=== PATIENT | male | born 1945 | race Caucasian/White ===

== ENCOUNTER 2017-02-01 06:44 | Inpatient (IN) | payer MEDICARE, OTHER ==
[2017-01-30 15:07] LABS: WBC (NOT ORDERED) (RFLEX) 0 (0-5)
[2017-01-30 15:37] LABS: BASOPHILS 0.2 %; BASOPHILS ABSOLUTE 0.02 10/3/uL (0.0-0.16); EOSINOPHILS 0.8 %; EOSINOPHILS ABSOLUTE 0.08 10/3/uL (0.0-0.53); HEMATOCRIT 44.5 % (40.0-51.0); HEMOGLOBIN 15.1 g/dL (13.6-17.8); IMMATURE GRANULOCYTES 0.3 %; IMMATURE GRANULOCYTES ABSOLUTE 0.03 10/3/uL (0.0-0.11); LYMPHOCYTES 22.1 %; LYMPHOCYTES ABSOLUTE 2.29 10/3/uL (0.67-4.30); MEAN CORPUS HGB CONC 33.9 g/dL (32.0-36.0); MEAN CORPUSCULAR VOLUME 91.4 fL (80-100); MONOCYTES 8.6 %; MONOCYTES ABSOLUTE 0.89 10/3/uL (0.21-1.20); NEUTROPHILS ABSOLUTE 7.04 10/3/uL (2.02-8.40); PLATELET COUNT 253 10/3/uL (150-400); RBC DISTRIBUTION WIDTH 13.1 % (12.0-16.0); RED CELL COUNT 4.87 10/6/uL (4.7-6.1); WHITE BLOOD CELLS 10.4 10/3/uL (4.5-10.5)
[2017-01-30 15:38] LABS: MANUAL DIFF NO %
[2017-01-30 15:40] LABS: INTERNATIONAL NORMAL RATI 1.1 UNITS (-); PROTIME (NOT ORD) 14.2 SEC (12.0-14.5)
[2017-01-30 15:49] LABS: ASCORBIC ACID (UR NOT ORDER) 40 (NEG); BILIRUBIN, URINE NEGATIVE (NEG); KETONE, URINE NEGATIVE (NEG); LEUKOCYTE ESTERASE(NOT OR NEG (NEG)
[2017-01-30 15:50] LABS: % IRON SAT 19 % (20-50); A/G RATIO 1.1 (0.7-1.9); ALBUMIN 4.3 G/DL (3.5-5.0); ALKALINE PHOSPHATASE 101 U/L (45-117); BUN (BLOOD UREA NITROGEN) 15 MG/DL (6-23); CALCIUM, SERUM 9.3 MG/DL (8.5-10.4); CHLORIDE, SERUM 102 MMOL/L (96-112); CO2 (CARBON DIOXIDE) 28 MMOL/L (24-34); GFR AFRICAN AMERICAN 78 ML/MIN (>=60); GFR NON AFRICAN AMERICAN 68 ML/MIN (>=60); GLUCOSE, SERUM 98 MG/DL (60-99); IRON BINDING CAPACITY 385 MCG/DL (250-450); IRON, SERUM 75 MCG/DL (35-150); SGOT(AST) 18 U/L (5-40); SGPT(ALT) 29 U/L (5-65); SODIUM, SERUM 136 MMOL/L (135-148); TOTAL BILIRUBIN 0.7 MG/DL (0-1.2); TOTAL PROTEIN 8.3 G/DL (6.0-8.5)
--- NOTE | ~2017-02-01 | OP ---
Record Of Operation [facility] [address] [place]. [address] NAME: KIN DE LEÓN : 47 STATUS : ADM IN PAT#: [id number] AGE: 71 ADM/REG DATE : 02/01/17 MR#: [id number] REPORT SERV DATE: 02/02/17 DICTATED BY: ANUSHA MAURER DATE: 02/01/17 REPORT STATUS : Draft TRANSCRIBED BY: MODL DATE: 02/01/17 DATE OF PROCEDURE: 02/01/2017 PREOPERATIVE DIAGNOSES: 1. Coronary artery disease with dyspnea on exertion. 2. Left main coronary artery disease. 3. Previous percutaneous coronary intervention with stents of the coronary artery. 4. Hypertension. 5. Hyperlipidemia. 6. Crohn disease. 7. Gastroesophageal reflux disease. 8. Restrictive lung disease. POSTOPERATIVE DIAGNOSES: 1. Coronary artery disease with dyspnea on exertion. 2. Left main coronary artery disease. 3. Previous percutaneous coronary intervention with stents of the coronary artery. 4. Hypertension. 5. Hyperlipidemia. 6. Crohn disease. 7. Gastroesophageal reflux disease. 8. Restrictive lung disease. PROCEDURES PERFORMED: 1. Coronary artery bypass grafting x3, left internal mammary artery placed to left anterior descending, reverse saphenous vein graft placed to the first diagonal, reverse saphenous vein graft placed to the second obtuse marginal. 2. Endoscopic vein harvest of the saphenous vein from the right thigh. 3. Transesophageal echocardiography. SURGEON: Anusha Maurer M.D. ASSISTANTS: Norah Veliz, Rosa Bradford, and Claudio Noyola. ANESTHESIA: General with Dr. Lassiter. [employer]: Aamir Acharya M.D. PRIMARY CARE: Godfrey Cheung M.D. INDICATIONS: This is a 71-year-old gentleman who has a known history of coronary artery disease with previous stenting of the circumflex vessel. Over the last several weeks, he has noticed increasing dyspnea with exertion and lightheadedness or dizziness when he bends over at the waist. Denies any anginal-type symptoms. Recent echocardiography demonstrated normal ventricular function with an ejection fraction 55% to 60%. He had a nuclear stress test on 01/13/2017 that showed inferior wall ischemia with dyspnea and graded as an Record Of Operation [facility] [address] [facility] [place]. [address] NAME: KIN DE LEÓN : 47 STATUS : ADM IN PAT#: [id number] AGE: 71 ADM/REG DATE : 02/01/17 MR#: [id number] REPORT SERV DATE: 02/02/17 DICTATED BY: ANUSHA MAURER DATE: 02/01/17 REPORT STATUS : Draft TRANSCRIBED BY: CHAO DATE: 02/01/17 intermediate risk study. Cardiac catheterization demonstrated significant left main stenosis of 75%. His ventricular function was preserved. We were asked to see the patient for possible coronary artery bypass grafting and discussed this operation with the patient and his family, and after discussing the operation, its indications and risks, they wished to proceed. STS predicted risk of mortality of 0.6%, morbidity mortality was 7.5%. This was shared with the family. FINDINGS AT OPERATION: 1. Cross-clamp time of 47 minutes, total pump time 61 minutes. 2. The LAD was 1.75 mm and moderately diseased vessel. A 3 mm CHAHAL was anastomosed to it with good runoff. 3. The first diagonal was 1.75 mm and mildly diseased. A 4 mm RSVG was anastomosed to it with good runoff. 4. The second obtuse marginal was 2 mm and moderately diseased. A 4 mm RSVG was anastomosed to it with good runoff. 5. The vein quality was good and all grafts had good Doppler signal at the end of the case. 6. SOCORRO at the end of the operation demonstrated good ventricular function with no significant mitral insufficiency or aortic stenosis. PATHOLOGIC SPECIMEN: None. DESCRIPTION OF PROCEDURE: The patient was brought to the operating suite where general anesthesia was induced and airway secured with an endotracheal tube. Lines were secured by Anesthesia, and Bowman catheter was placed. The patient's chest, abdomen, groin, and legs were prepped with Hibiclens and ChloraPrep and draped with Ioban sterile sheets. SOCORRO probe was placed by Dr. Lassiter and examination carried out in my attendance as discussed above. The saphenous vein was harvested from the right thigh using endoscopic technique. Briefly, the vein was cut directly down upon through a 2 cm incision placed at the medial aspect of the right knee. Then, using VasoView trocars, the vessel was dissected from the surrounding subcutaneous tissue and fat. The side branches were identified, ligated, divided with cautery. Once adequate length of vein had been dissected, a counter incision made up in the groin and the vein was ligated, divided, and brought through the knee incision. The vein quality was good. The leg was made hemostatic and closed in layers of absorbable suture and skin closed in a subcuticular fashion. Next, a midline sternal incision was made and the sternum opened with a saw. The left hemithorax was elevated and the endothoracic fascia was incised. The side branch of the MDAELIN were clipped and divided. Once the MADELIN was completely dissected, the patient was anticoagulated with heparin and chest tube placed in the left pleural cavity. The MADELIN was clipped and divided distally. There was good flow through the MADELIN and its pedicle was infiltrated with papaverine. Next, the Connor retractor was placed in the pericardium over from innominate vein and diaphragm, where it was T'd and tacked to the side of the chest wall. Cannulation pursestring sutures were placed and cannulation was carried out in a routine manner. A Record Of [address] [place]. [address] NAME: KIN DE LEÓN : 47 STATUS : ADM IN PAT#: [id number] AGE: 71 ADM/REG DATE : 02/01/17 MR#: [id number] REPORT SERV DATE: 02/02/17 DICTATED BY: ANUSHA MAURER DATE: 02/01/17 REPORT STATUS : Draft TRANSCRIBED BY: CHAO DATE: 02/01/17 retrograde cardioplegia cannula was placed in the coronary sinus. When all was in readiness, the patient was placed on cardiopulmonary bypass. The distal targets were marked out on the heart as described in findings. Then, a heart support was placed. The aorta was crossclamped and an initial dose of cold blood cardioplegia solution was given in a combination of antegrade and retrograde fashion, then a retrograde manner following proximal anastomoses. Following the first dose of cardioplegia, the heart was positioned for the obtuse marginal graft. Arteriotomy was made. The vein graft was trimmed and anastomosed to it with 7-0 Prolene. The vein graft was measured to the left side of the ascending aorta where it was divided. We then positioned the heart for the diagonal graft. Another arteriotomy was made and the vein graft was trimmed and anastomosed to this vessel with 7-0 Prolene. This vein graft was measured back likewise to the left side of the ascending aorta where it was divided. Next, the proximal ends of the two vein grafts were anastomosed to 5 mm punch aortotomies with 6-0 Prolene. Another dose of cardioplegia was given and the heart was positioned for the LAD graft. Warming was begun. Arteriotomy was made in the mid LAD. The MADELIN was brought out the left chest through a notch in the pericardium over the pulmonary artery. The MADELIN was opened and anastomosed to the LAD with running suture of 8-0 Prolene. The endothoracic fascia was tacked to epicardium. The patient was placed in Trendelenburg and a final dose of warm blood cardioplegia was given in a retrograde fashion. Ventricular and atrial pacing wires were placed. Following the last dose of cardioplegia and deairing of the aorta, the aortic cross clamp was removed. The distal and proximal anastomoses were inspected and made hemostatic. The heart resumed a sinus rhythm that was slow and was paced atrially at a rate of 80. Ventilation was begun. When the heart demonstrated good contractility, it was allowed to fill and eject. When deairing was completed, the patient was taken out of Trendelenburg and the ascending aortic vent removed and these pursestring sutures tied and reinforced. The patient was weaned from cardiopulmonary bypass with minimal inotropic support. The venous cannula was removed and these pursestring sutures tied. SOCORRO examination demonstrated good ventricular function with no significant valvular pathology. Protamine was administered by Anesthesia and following a period of hemodynamic stability, the aortic cannula was removed and these pursestring sutures tied and reinforced. The patient continued do well and chest was irrigated copiously with saline. Meticulous hemostasis was obtained. Hemasorb was placed along the cut edge of the sternum. Once hemostasis was assured, the pericardium was draped over the anterior surface of the heart and tacked into position. Doppler demonstrated good flow through the grafts following protamine administration. Chest tubes were placed and sternum reapproximated with eight sternal wires. The clavipectoral fascia and linea alba were closed with #1 Stratafix. The subcutaneous tissue was closed with Stratafix and skin closed in a subcuticular fashion. The patient tolerated the procedure well. There were no complications. Sponge and needle Record Of [facility] [address] [facility] [place]. [address] NAME: KIN DE LEÓN : 47 STATUS : ADM IN PAT#: [id number] AGE: 71 ADM/REG DATE : 02/01/17 MR#: [id number] REPORT SERV DATE: 02/02/17 DICTATED BY: ANUSHA MAURER DATE: 02/01/17 REPORT STATUS : Draft TRANSCRIBED BY: MODL DATE: 02/01/17 counts were correct. DISPOSITION: The patient left intubated, sedated, and transported to the intensive care unit in stable condition. BRANDON/CHAO Anusha Maurer M.D. / [id number] CC: Pieter Zhao M.D. Van Stephen Monroe Jr., M.D.
--- NOTE | ~2017-02-01 | DS ---
Discharge Summary [facility] [address] [facility] [place]. [address] NAME: KIN DE LEÓN : 47 STATUS : DIS IN PAT#: [id number] AGE: 71 ADM/REG DATE : 02/01/17 MR#: [id number] REPORT SERV DATE: 02/16/17 DICTATED BY: ANUSHA MAURER DATE: 02/15/17 REPORT STATUS : Draft TRANSCRIBED BY: CHAO DATE: 02/15/17 Data Collection from hospitalization DISCHARGE DIAGNOSES: 1. Coronary artery disease status post coronary artery bypass. 2. Hypertension. 3. Hyperlipidemia. 4. Prostate cancer. 5. Crohn disease. 6. Rheumatoid arthritis. 7. Gastroesophageal reflux disease. 8. History of ankylosing spondylitis. 9. Remote tobacco use. 10.Restrictive lung disease. CONSULTATIONS: Dr. Mejia Stern, Clifton Bettencourt, DEVIN. PROCEDURES PERFORMED: Coronary artery bypass grafting x3 with CHAHAL to the LAD, reverse saphenous vein graft placed to the first diagonal, reverse saphenous vein graft placed to the second obtuse marginal, endoscopic vein harvest of the saphenous vein from the right thigh, transesophageal echocardiography, 02/01/2017. MEDICATIONS: Vitamin C 1000 mg twice a day, aspirin 81 mg twice a day, Lipitor 40 mg as instructed, Coreg 6.25 mg twice a day, Plavix 75 mg daily, Flonase nasal spray one spray nasally daily, Lasix 40 mg daily, [place] 5/325 one tablet every four hours as needed, multivitamins one tablet daily, NitroQuick 0.4 mg sublingually as needed, fish oil 1000 mg daily, Protonix 40 mg daily, Klor-Con 20 mEq as instructed, Azulfidine 1500 mg twice a day. CONDITION AT DISCHARGE: Stable. DISPOSITION: The patient was discharged home on a low-sodium, low-cholesterol, cardiac diet with activities as instructed. He would follow up with John Huizar, 02/14/[address] Mejia Stern, 02/17/2017. He would follow up at cardiac rehab, 03/14/2017. HOSPITAL COURSE: This is a 71-year-old man, who has a known history of coronary artery disease with previous stenting of the circumflex vessel. Over the past several weeks, he had noticed increasing dyspnea with exertion and lightheadedness or dizziness when he would bend over at the waist. He denied any anginal-type symptoms. Recent echocardiography demonstrated normal ventricular function with an ejection fraction of 55% to 60%. He had a nuclear stress test in December 2016 that showed inferior wall ischemia with dyspnea and was graded as an intermediate risk study. A cardiac catheterization demonstrated significant left main stenosis of 75%. His ventricular function was preserved. It was felt the patient would need to undergo coronary artery bypass grafting. He was admitted to the hospital at this time for further evaluation and treatment. Upon admission, he was taken to the operating room, where he underwent the above-mentioned procedure. He tolerated this well and there were no complications. On postop day one, he was up sitting in a chair. His lungs were clear. He had no edema. White blood cell count Discharge Summary [id number] [place]. [address] NAME: KIN DE LEÓN : 47 STATUS : DIS IN [facility]#: [id number] AGE: 71 ADM/REG DATE : 02/01/17 MR#: [id number] REPORT SERV DATE: 02/16/17 DICTATED BY: ANUSHA MAURER DATE: 02/15/17 REPORT STATUS : Draft TRANSCRIBED BY: CHAO DATE: 02/15/17 was 19.5. He was seen by Dr. Mejia Stern. The patient said he was sore and had some left pleuritic pain. He had no shortness of breath or edema. Coreg was started. Amiodarone, statin agent, and DAPT were continued. He was also seen by Clifton Bettencourt. He had been asked to see the patient regarding glucose management. The patient has no history of diabetes. He was on an insulin drip at this time. He was going to be placed on Levemir and NovoLog, and we would discontinue the IV insulin. We encouraged him to mobilize and use incentive spirometry. On postop day two, he said he was feeling okay. He did have some mild nausea. Levemir was given that evening. Lasix was going to be given. Electrolyte protocol was in place. Amiodarone was decreased. He had some abdominal bloating. His incisions looked okay. On 02/04/2017, his abdomen was distended. White count was 14.1. He was tolerating clear liquids over the next couple of days. Discharge planning was performed. He did have a small bowel movement. We encouraged him to use pulmonary toilet. Dulcolax suppository was given. Discharge planning was performed. He was in a normal sinus rhythm. On 02/06/2017, he continued to progress. He was wanting to go home. He did have some cough. His lungs were clear. He had trace to 1+ lower extremity edema. Lasix and potassium were being provided. He was ambulatory. Discharge instructions were given. Due to his improved and stable condition, he was discharged home with the above-stated instructions. Information collected by: Gracia Cadena I submit the above information as my discharge summary. TG/MODL Anusha Maurer M.D. / [id number] CC: Pieter Zhao MICHAEL Allen E Atchley, M.D.
[~2017-02-01 06:44] MED LIST: ASAB PO; COREG6 PO; CRESTOR20 MG PO; FISH-EPA1000 MG PO; FLONASE NAS; LIPITOR10 PO; MULTIPLE VIT PO; NITROSTAT0.4 MG SL; NORV5 PO; PENTASA500 MG PO; PLAVIX PO; PROTONIX PO; SAS500 PO; TRAZODONE150 MG PO; VITC500 PO; VOLT75 PO; ZANTAC150 MG PO
[2017-02-01 11:35] LABS: BE (BASE EXCESS) -1.5 MEQ/L (0 +/- 2.5); CARBOXYHEMOGLOBIN 0.3 % (0-3); HCO3 (ACTUAL BICARBONATE) 23.3 MEQ/L (23-27); HEMOBLOGIN CONTENT 12.7 G/DL (14-18); INSTRUMENT SERIAL # 11843; METHEMOGLOBIN 0.4 % (0-3); MODE SIMV; O2 CONTENT 18.5 VOL% (18-24); OPERATOR ID 35188; PCO2 (CO2 TENSION) 40 MMHG (35-45); PO2 (O2 TENSION) 360 MMHG (79-93); SAMPLE Arterial; TIDAL VOLUME 700 ML; pH 7.39 (7.37-7.43)
[2017-02-01 11:48] LABS: HEMATOCRIT 34.8 % (40.0-51.0); HEMOGLOBIN 11.9 g/dL (13.6-17.8); PLATELET COUNT 157 10/3/uL (150-400)
[2017-02-01 11:55] LABS: INTERNATIONAL NORMAL RATI 1.4 UNITS (-); PARTIAL THROMBO TIME 33.4 SEC (22.5-37.2)
[2017-02-01 11:59] LABS: BUN (BLOOD UREA NITROGEN) 15 MG/DL (6-23); CALCIUM, SERUM 8.9 MG/DL (8.5-10.4); CHLORIDE, SERUM 113 MMOL/L (96-112); CO2 (CARBON DIOXIDE) 28 MMOL/L (24-34); CREATININE 1.22 MG/DL (0.70-1.30); GFR AFRICAN AMERICAN 69 ML/MIN (>=60); GFR NON AFRICAN AMERICAN 60 ML/MIN (>=60); POTASSIUM, SERUM 4.1 MMOL/L (3.5-5.3)
[2017-02-01 12:00] LABS: GLUCOSE, SERUM 126 MG/DL (60-99); PROTIME (NOT ORD) 17.3 SEC (12.0-14.5); SODIUM, SERUM 144 MMOL/L (135-148)
[2017-02-01 17:06] LABS: BE (BASE EXCESS) -3.5 MEQ/L (0 +/- 2.5); CARBOXYHEMOGLOBIN 0.3 % (0-3); DEVICE NC; HCO3 (ACTUAL BICARBONATE) 21.4 MEQ/L (23-27); HEMOBLOGIN CONTENT 12.9 G/DL (14-18); INSTRUMENT SERIAL # 11843; METHEMOGLOBIN 0.4 % (0-3); OPERATOR ID 35188; PCO2 (CO2 TENSION) 38 MMHG (35-45); PO2 (O2 TENSION) 149 MMHG (79-93); SAMPLE Arterial; pH 7.37 (7.37-7.43)
[2017-02-01 19:00] LABS: HEMATOCRIT 34.3 % (40.0-51.0); HEMOGLOBIN 11.5 g/dL (13.6-17.8)
[2017-02-01 19:09] LABS: BUN (BLOOD UREA NITROGEN) 19 MG/DL (6-23); CALCIUM, SERUM 8.1 MG/DL (8.5-10.4); CHLORIDE, SERUM 112 MMOL/L (96-112); CO2 (CARBON DIOXIDE) 24 MMOL/L (24-34); CREATININE 1.12 MG/DL (0.70-1.30); GFR AFRICAN AMERICAN 77 ML/MIN (>=60); GFR NON AFRICAN AMERICAN 66 ML/MIN (>=60); GLUCOSE, SERUM 120 MG/DL (60-99); POTASSIUM, SERUM 5.1 MMOL/L (3.5-5.3); SODIUM, SERUM 144 MMOL/L (135-148)
[2017-02-02 03:50] LABS: BASOPHILS 0.1 %; BASOPHILS ABSOLUTE 0.01 10/3/uL (0.0-0.16); EOSINOPHILS 0 %; HEMATOCRIT 31.9 % (40.0-51.0); HEMOGLOBIN 10.4 g/dL (13.6-17.8); IMMATURE GRANULOCYTES 0.2 %; IMMATURE GRANULOCYTES ABSOLUTE 0.04 10/3/uL (0.0-0.11); LYMPHOCYTES 7.9 %; LYMPHOCYTES ABSOLUTE 1.53 10/3/uL (0.67-4.30); MEAN CORPUS HGB CONC 32.6 g/dL (32.0-36.0); MEAN CORPUSCULAR HEMOGLOB 29.9 pg (26.0-34.0); MEAN CORPUSCULAR VOLUME 91.7 fL (80-100); MEAN PLATELET VOLUME 10.8 fL (9.2-13.0); MONOCYTES 9.5 %; MONOCYTES ABSOLUTE 1.85 10/3/uL (0.21-1.20); NEUTROPHILS 82.3 %; NEUTROPHILS ABSOLUTE 16.06 10/3/uL (2.02-8.40); PLATELET COUNT 183 10/3/uL (150-400); RBC DISTRIBUTION WIDTH 13.5 % (12.0-16.0)
[2017-02-02 03:51] LABS: MANUAL DIFF NO %; RED CELL COUNT 3.48 10/6/uL (4.7-6.1); WHITE BLOOD CELLS 19.5 10/3/uL (4.5-10.5)
[2017-02-02 04:02] LABS: BUN (BLOOD UREA NITROGEN) 22 MG/DL (6-23); CALCIUM, SERUM 8.2 MG/DL (8.5-10.4); CHLORIDE, SERUM 110 MMOL/L (96-112); CO2 (CARBON DIOXIDE) 22 MMOL/L (24-34); CREATININE 1.14 MG/DL (0.70-1.30); GFR AFRICAN AMERICAN 75 ML/MIN (>=60); GFR NON AFRICAN AMERICAN 65 ML/MIN (>=60); GLUCOSE, SERUM 110 MG/DL (60-99); POTASSIUM, SERUM 4.5 MMOL/L (3.5-5.3); SODIUM, SERUM 141 MMOL/L (135-148)
[2017-02-02 13:31] LABS: PHOSPHORUS, SERUM 4.7 MG/DL (2.5-4.5)
[2017-02-02 21:40] LABS: WBC (NOT ORDERED) (RFLEX) 0 (0-5)
[2017-02-02 22:16] LABS: ASCORBIC ACID (UR NOT ORDER) 40 (NEG); BILIRUBIN, URINE NEGATIVE (NEG); KETONE, URINE TRACE MG/DL (NEG); LEUKOCYTE ESTERASE(NOT OR NEG (NEG)
[2017-02-03 05:59] LABS: CALCIUM, SERUM 8.5 MG/DL (8.5-10.4); CHLORIDE, SERUM 104 MMOL/L (96-112); CO2 (CARBON DIOXIDE) 24 MMOL/L (24-34); CREATININE 1.17 MG/DL (0.70-1.30); GFR AFRICAN AMERICAN 73 ML/MIN (>=60); GFR NON AFRICAN AMERICAN 63 ML/MIN (>=60); POTASSIUM, SERUM 4.3 MMOL/L (3.5-5.3); SODIUM, SERUM 137 MMOL/L (135-148)
[2017-02-03 06:00] LABS: BASOPHILS 0.1 %; BASOPHILS ABSOLUTE 0.01 10/3/uL (0.0-0.16); EOSINOPHILS 0.1 %; EOSINOPHILS ABSOLUTE 0.01 10/3/uL (0.0-0.53); HEMOGLOBIN 10.8 g/dL (13.6-17.8); IMMATURE GRANULOCYTES 0.2 %; IMMATURE GRANULOCYTES ABSOLUTE 0.04 10/3/uL (0.0-0.11); LYMPHOCYTES 11.3 %; LYMPHOCYTES ABSOLUTE 1.87 10/3/uL (0.67-4.30); MEAN CORPUS HGB CONC 33.8 g/dL (32.0-36.0); MEAN CORPUSCULAR HEMOGLOB 30.7 pg (26.0-34.0); MEAN CORPUSCULAR VOLUME 90.9 fL (80-100); MONOCYTES 11.3 %; MONOCYTES ABSOLUTE 1.87 10/3/uL (0.21-1.20); PLATELET COUNT 187 10/3/uL (150-400); RBC DISTRIBUTION WIDTH 13.6 % (12.0-16.0); RED CELL COUNT 3.52 10/6/uL (4.7-6.1); WHITE BLOOD CELLS 16.5 10/3/uL (4.5-10.5)
[2017-02-03 06:03] LABS: MANUAL DIFF NO %
[2017-02-03 06:09] LABS: BUN (BLOOD UREA NITROGEN) 29 MG/DL (6-23); GLUCOSE, SERUM 151 MG/DL (60-99)
[2017-02-04 06:11] LABS: BASOPHILS 0.1 %; BASOPHILS ABSOLUTE 0.01 10/3/uL (0.0-0.16); EOSINOPHILS 0.5 %; EOSINOPHILS ABSOLUTE 0.07 10/3/uL (0.0-0.53); HEMATOCRIT 31.6 % (40.0-51.0); HEMOGLOBIN 10.5 g/dL (13.6-17.8); IMMATURE GRANULOCYTES 0.3 %; IMMATURE GRANULOCYTES ABSOLUTE 0.04 10/3/uL (0.0-0.11); LYMPHOCYTES 11.2 %; LYMPHOCYTES ABSOLUTE 1.59 10/3/uL (0.67-4.30); MEAN CORPUS HGB CONC 33.2 g/dL (32.0-36.0); MEAN CORPUSCULAR HEMOGLOB 30.5 pg (26.0-34.0); MEAN CORPUSCULAR VOLUME 91.9 fL (80-100); MEAN PLATELET VOLUME 10.6 fL (9.2-13.0); MONOCYTES 10.9 %; MONOCYTES ABSOLUTE 1.54 10/3/uL (0.21-1.20); NEUTROPHILS ABSOLUTE 10.89 10/3/uL (2.02-8.40); PLATELET COUNT 179 10/3/uL (150-400); RBC DISTRIBUTION WIDTH 13.5 % (12.0-16.0); RED CELL COUNT 3.44 10/6/uL (4.7-6.1); WHITE BLOOD CELLS 14.1 10/3/uL (4.5-10.5)
[2017-02-04 06:12] LABS: MANUAL DIFF NO %
[2017-02-04 06:29] LABS: CALCIUM, SERUM 9.2 MG/DL (8.5-10.4); CHLORIDE, SERUM 100 MMOL/L (96-112); CREATININE 0.99 MG/DL (0.70-1.30); GFR AFRICAN AMERICAN 89 ML/MIN (>=60); GFR NON AFRICAN AMERICAN 77 ML/MIN (>=60); GLUCOSE, SERUM 123 MG/DL (60-99); POTASSIUM, SERUM 4.1 MMOL/L (3.5-5.3); SODIUM, SERUM 135 MMOL/L (135-148)
[2017-02-04 06:33] LABS: BUN (BLOOD UREA NITROGEN) 23 MG/DL (6-23); CO2 (CARBON DIOXIDE) 29 MMOL/L (24-34)
[2017-02-05 05:38] LABS: BASOPHILS 0.1 %; BASOPHILS ABSOLUTE 0.02 10/3/uL (0.0-0.16); EOSINOPHILS 1.3 %; HEMATOCRIT 31.1 % (40.0-51.0); HEMOGLOBIN 10.4 g/dL (13.6-17.8); IMMATURE GRANULOCYTES 0.3 %; IMMATURE GRANULOCYTES ABSOLUTE 0.05 10/3/uL (0.0-0.11); LYMPHOCYTES 11.4 %; LYMPHOCYTES ABSOLUTE 1.69 10/3/uL (0.67-4.30); MEAN CORPUS HGB CONC 33.4 g/dL (32.0-36.0); MEAN CORPUSCULAR HEMOGLOB 30.6 pg (26.0-34.0); MEAN CORPUSCULAR VOLUME 91.5 fL (80-100); MEAN PLATELET VOLUME 10.4 fL (9.2-13.0); MONOCYTES 11.2 %; MONOCYTES ABSOLUTE 1.67 10/3/uL (0.21-1.20); NEUTROPHILS 75.7 %; NEUTROPHILS ABSOLUTE 11.25 10/3/uL (2.02-8.40); PLATELET COUNT 230 10/3/uL (150-400); RBC DISTRIBUTION WIDTH 13.3 % (12.0-16.0); WHITE BLOOD CELLS 14.9 10/3/uL (4.5-10.5)
[2017-02-05 05:40] LABS: MANUAL DIFF NO %
[2017-02-05 05:54] LABS: CHLORIDE, SERUM 100 MMOL/L (96-112); CO2 (CARBON DIOXIDE) 29 MMOL/L (24-34); CREATININE 1.02 MG/DL (0.70-1.30); GFR AFRICAN AMERICAN 86 ML/MIN (>=60); GFR NON AFRICAN AMERICAN 74 ML/MIN (>=60); GLUCOSE, SERUM 131 MG/DL (60-99); POTASSIUM, SERUM 3.9 MMOL/L (3.5-5.3); SODIUM, SERUM 133 MMOL/L (135-148)
[2017-02-05 05:57] LABS: BUN (BLOOD UREA NITROGEN) 19 MG/DL (6-23)
[2017-02-06 04:56] LABS: BASOPHILS 0.2 %; BASOPHILS ABSOLUTE 0.02 10/3/uL (0.0-0.16); EOSINOPHILS 2.5 %; EOSINOPHILS ABSOLUTE 0.24 10/3/uL (0.0-0.53); HEMATOCRIT 28.5 % (40.0-51.0); HEMOGLOBIN 9.4 g/dL (13.6-17.8); IMMATURE GRANULOCYTES 0.2 %; IMMATURE GRANULOCYTES ABSOLUTE 0.02 10/3/uL (0.0-0.11); LYMPHOCYTES 17.9 %; LYMPHOCYTES ABSOLUTE 1.74 10/3/uL (0.67-4.30); MEAN CORPUSCULAR HEMOGLOB 30.1 pg (26.0-34.0); MEAN CORPUSCULAR VOLUME 91.3 fL (80-100); MEAN PLATELET VOLUME 10.3 fL (9.2-13.0); MONOCYTES 10.2 %; MONOCYTES ABSOLUTE 0.99 10/3/uL (0.21-1.20); NEUTROPHILS ABSOLUTE 6.73 10/3/uL (2.02-8.40); PLATELET COUNT 225 10/3/uL (150-400); RBC DISTRIBUTION WIDTH 13.4 % (12.0-16.0); RED CELL COUNT 3.12 10/6/uL (4.7-6.1); WHITE BLOOD CELLS 9.7 10/3/uL (4.5-10.5)
[2017-02-06 04:57] LABS: MANUAL DIFF NO %
[2017-02-06 05:04] LABS: BUN (BLOOD UREA NITROGEN) 19 MG/DL (6-23); CALCIUM, SERUM 8.6 MG/DL (8.5-10.4); CHLORIDE, SERUM 102 MMOL/L (96-112); CO2 (CARBON DIOXIDE) 29 MMOL/L (24-34); CREATININE 0.91 MG/DL (0.70-1.30); GFR AFRICAN AMERICAN 99 ML/MIN (>=60); GFR NON AFRICAN AMERICAN 85 ML/MIN (>=60); GLUCOSE, SERUM 123 MG/DL (60-99); POTASSIUM, SERUM 3.9 MMOL/L (3.5-5.3); SODIUM, SERUM 137 MMOL/L (135-148)
[2017-02-06] MEDS ORDERED: PLAVIX PO (13:25)
[2017-02-06] MEDS ORDERED: LIPITOR40 (13:25)
[2017-02-06] MEDS ORDERED: NORCO1 TA1 PO (13:26)
[2017-02-06] MEDS ORDERED: NITROQUICK0.4 MG SL (13:26)
[2017-02-06] MEDS ORDERED: KLOR-CON M2020 MEQ PO (13:27)
[2017-02-06] MEDS ORDERED: L40 PO (13:27)
== END 2017-02-06 15:23 | disposition home or self-care (01) | DRG 236 ==
LOC: SDC/OF 06:44 → CVICU 10:50 → 5NO 02-02 13:53
PROVIDERS: Thoracic Surgery (Cardiothoracic Vascular Surgery)
PROC: 06BP0ZZ Excision of Right Saphenous Vein, Open Approach (ICD-10-PCS; 2017-02-01)
PROC: 5A1221Z Performance of Cardiac Output, Continuous (ICD-10-PCS; 2017-02-01)
PROC: B246ZZ4 Ultrasonography of Right and Left Heart, Transesophageal (ICD-10-PCS; 2017-02-01)
PROC: 021109W Bypass Coronary Artery, Two Arteries from Aorta with Autologous Venous Tissue, Open Approach (ICD-10-PCS; principal; 2017-02-01 07:30)
PROC: 0210099 Bypass Coronary Artery, One Artery from Left Internal Mammary with Autologous Venous Tissue, Open Approach (ICD-10-PCS; 2017-02-01 07:30)
DX: I25.10 Atherosclerotic heart disease of native coronary artery without angina pectoris (principal); K50.90 Crohn's disease, unspecified, without complications; M45.9 Ankylosing spondylitis of unspecified sites in spine; Z95.5 Presence of coronary angioplasty implant and graft; I10 Essential (primary) hypertension; E78.5 Hyperlipidemia, unspecified; K21.9 Gastro-esophageal reflux disease without esophagitis; J98.4 Other disorders of lung; R73.9 Hyperglycemia, unspecified; D72.829 Elevated white blood cell count, unspecified
CPT/HCPCS: 36415; 71010; 71020; 74000; 80048; 80053; 81001; 82330; 82803; 82805; 82947; 82962; 83036; 83540; 83550; 83735; 84100; 84132; 84295; 85014; 85018; 85025; 85049; 85347; 85610; 85730; 86850; 86900; 86901; 86920; 87040; 87205; 87641; 93005; 93312; 93320; 93325; 93880; 94002; 94640; 94660; 94667; 94770; A9270-GY; C1713; C1769; C1894; J0330; J0690; J1644; J2150; J2250; J2370; J2405; J2440; J2720; J2765; J2795; J3010; J3475; J3480; P9045; P9047